=== PATIENT | female | born 1955 | race Caucasian/White ===

== ENCOUNTER 2021-04-11 12:21 | Emergency (ER) | payer SELFPAY ==
[~2021-04-11] VITALS: Ht 157.5 cm; Wt 86.0 kg
[2021-04-11 14:58] LABS: BASOPHILS % 0.8 % (0.0-2.0); EOSINOPHILS % 0.7 % (0.0-5.0); HEMATOCRIT. 39.5 % (36.0-48.0); HEMOGLOBIN. 12.4 g/dL (12.0-16.0); LYMPHOCYTES % 30.6 % (20.0-50.0); MEAN CORPUSCULAR HEMOGLOBIN 25.5 pg (28.0-32.0); MEAN CORPUSCULAR VOLUME 81.2 fL (81.0-99.0); MEAN PLATELET VOLUME 8.7 fl (7.4-10.4); MONOCYTES % 5.7 % (2.0-8.0); NEUTROPHILS % 62.2 % (40.0-76.0); PLATELET 345 x1000/uL (130-400); RED BLOOD CELL COUNT 4.86 mill/uL (4.2-5.4); RED CELL DISTRIBUTION WIDTH 14.6 % (11.6-14.6)
[2021-04-11 15:06] LABS: CLARITY URINE CLEAR (CLEAR); COLOR URINE YELLOW (YELLOW); KETONES URINE NEGATIVE (NEGATIVE); LEUKOCYTE ESTERASE URINE NEGATIVE (NEGATIVE); NITRITE URINE NEGATIVE (NEGATIVE); OCCULT BLOOD URINE NEGATIVE (NEGATIVE); PH URINE 5.5 (4.5-8.0); PROTEIN URINE TRACE (NEGATIVE); SPECIFIC GRAVITY URINE 1.048 (1.005-1.030); UROBILINOGEN URINE 0.2 E.U./dL (0.2-1.0)
[2021-04-11 15:06] LABS: CHLORIDE 105 mEq/L (98-107)
[2021-04-11 18:10] VITALS: BP 229/117
[2021-04-11] MEDS ORDERED: TRAM50TA94 MT (18:10)
[2021-04-11] MEDS ORDERED: MED4 MT ×2 (18:10)
[2021-04-11] MEDS ORDERED: CYCL10TA7 MT ×2 (18:10)
== END 2021-04-11 18:36 | disposition home or self-care (01) ==
LOC: ER 12:21
DX: R20.0 Anesthesia of skin (principal); M54.16 Radiculopathy, lumbar region
CPT/HCPCS: 36415; 70450; 72125; 72148; 80053; 81003; 85025; 99285; A4217

== ENCOUNTER 2021-04-26 11:35 | Inpatient (IN) | payer MEDICAID ==
[~2021-04-26] VITALS: Ht 157.5 cm; Wt 96.2 kg
[~2021-04-26 11:35] MED LIST: CYCL10TA7 MT; MED4 MT; TRAM50TA94 MT
[2021-04-26 12:51] LABS: BASOPHILS % 0.7 % (0.0-2.0); EOSINOPHILS % 1.5 % (0.0-5.0); HEMATOCRIT. 39.7 % (36.0-48.0); HEMOGLOBIN. 12.9 g/dL (12.0-16.0); LYMPHOCYTES % 32.2 % (20.0-50.0); MEAN CORPUSCULAR HEMOGLOBIN 26.2 pg (28.0-32.0); MEAN CORPUSCULAR VOLUME 80.9 fL (81.0-99.0); MEAN PLATELET VOLUME 9.5 fl (7.4-10.4); MONOCYTES % 11.7 % (2.0-8.0); NEUTROPHILS % 53.9 % (40.0-76.0); PLATELET 310 x1000/uL (130-400); RED BLOOD CELL COUNT 4.91 mill/uL (4.2-5.4); RED CELL DISTRIBUTION WIDTH 14.4 % (11.6-14.6)
[2021-04-26 12:56] LABS: CHLORIDE 96 mEq/L (98-107)
[2021-04-26] MEDS ORDERED: ENALAPRIL 2.5MG/2ML VIAL 2ML IV ONE (13:30)
[2021-04-26] MEDS ORDERED: ASPIRIN 325MG EC TABLET PO ONE (13:30)
[2021-04-26] MEDS ORDERED: SODIUM CHLORIDE 0.9% 500 ML IV ONE (13:30)
[2021-04-26] MEDS: ENALAPRIL 1.25MG/ML VIAL 1ML IV SCH (13:47)
[2021-04-26] MEDS ORDERED: ONDANSETRON HCL 4MG/2ML INJ IV PRN (18:45)
[2021-04-26] MEDS ORDERED: DIPHENHYDRAMINE 50MG/ML VIAL IV PRN (18:45)
[2021-04-26] MEDS ORDERED: ACETAMINOPHEN 325MG TABLET PO PRN (18:45)
[2021-04-26] MEDS: AMLODIPINE 10MG TABLET PO SCH (19:07)
[2021-04-26] MEDS ORDERED: ENOXAPARIN 40MG/0.4ML SYR SUBCUT SCH (20:00)
[2021-04-26] MEDS ORDERED: DEXTROSE 50% WATER 50ML SYRINGE IV PRN (20:30)
[2021-04-26] MEDS: BLOOD SUGAR DIAGNOSTIC STRIP TEST SCH (21:00)
[2021-04-26] MEDS: CLONIDINE 0.1MG TABLET PO PRN (22:27)
[2021-04-26] MEDS: INSULIN LISPRO (MEDIUM DOSE) 100 UNITS/ML SUBCUT SCH (22:28)
[2021-04-26 22:30] VITALS: BP 173/75
[2021-04-27] VITALS (7 sets, daily range): BP systolic 106–180; BP diastolic 60–87
[2021-04-27] MEDS ORDERED: GLIM2TAB30 PO (01:04)
[2021-04-27] MEDS ORDERED: CHLO50TA PO (01:04)
[2021-04-27] MEDS ORDERED: METF-414 PO (01:04)
[2021-04-27] MEDS ORDERED: NIFE-33 PO (01:04)
[2021-04-27] MEDS ORDERED: ATOR10TA69 PO (01:04)
[2021-04-27] MEDS ORDERED: LISI40TA13 PO (01:04)
[2021-04-27] MEDS ORDERED: ASPI-1406 PO (01:04)
[2021-04-27] MEDS: BLOOD SUGAR DIAGNOSTIC STRIP TEST SCH ×4 (07:13→21:15)
[2021-04-27 07:35] LABS: BASOPHILS % 0.9 % (0.0-2.0); EOSINOPHILS % 2.6 % (0.0-5.0); HEMATOCRIT. 38.2 % (36.0-48.0); HEMOGLOBIN. 12.2 g/dL (12.0-16.0); LYMPHOCYTES % 41.5 % (20.0-50.0); MEAN CORPUSCULAR HEMOGLOBIN 25.9 pg (28.0-32.0); MEAN PLATELET VOLUME 9.6 fl (7.4-10.4); MONOCYTES % 10.5 % (2.0-8.0); NEUTROPHILS % 44.5 % (40.0-76.0); PLATELET 277 x1000/uL (130-400); RED BLOOD CELL COUNT 4.71 mill/uL (4.2-5.4); RED CELL DISTRIBUTION WIDTH 14.3 % (11.6-14.6)
[2021-04-27 07:40] LABS: CHLORIDE 99 mEq/L (98-107)
[2021-04-27 07:46] LABS: LDL CHOLESTEROL 111 mg/dL (5-100)
[2021-04-27 07:47] LABS: HDL CHOLESTEROL 44 mg/dL (40-59)
[2021-04-27] MEDS: CLONIDINE 0.1MG TABLET PO PRN (08:50)
[2021-04-27] MEDS: AMLODIPINE 10MG TABLET PO SCH (08:51)
[2021-04-27] MEDS: INSULIN LISPRO (MEDIUM DOSE) 100 UNITS/ML SUBCUT SCH ×2 (08:53→12:31)
[2021-04-27] MEDS ORDERED: POTASSIUM CHLORIDE 20MEQ TABLET SR PO NR (10:00)
[2021-04-27] MEDS ORDERED: POTASSIUM CHLORIDE 20MEQ/PACKET PO NR (13:30)
[2021-04-27] MEDS: INSULIN LISPRO 100 UNITS/ML SUBCUT SCH ×2 (17:10→21:20)
[2021-04-27] MEDS ORDERED: ATORVASTATIN CALCIUM 10MG TABLET PO SCH (21:00)
[2021-04-27 21:07] LABS: CLARITY URINE CLEAR (CLEAR); COLOR URINE YELLOW (YELLOW); KETONES URINE TRACE (NEGATIVE); LEUKOCYTE ESTERASE URINE NEGATIVE (NEGATIVE); NITRITE URINE NEGATIVE (NEGATIVE); OCCULT BLOOD URINE NEGATIVE (NEGATIVE); PROTEIN URINE NEGATIVE (NEGATIVE); SPECIFIC GRAVITY URINE 1.036 (1.005-1.030); UROBILINOGEN URINE 0.2 E.U./dL (0.2-1.0)
[2021-04-27 21:34] LABS: *AMPHETAMINES SCREEN URINE NEGATIVE (NEGATIVE); *BARBITURATES SCREEN URINE NEGATIVE (NEGATIVE); *BENZODIAZEPINES SCREEN URINE NEGATIVE (NEGATIVE)
[2021-04-27 21:35] LABS: *COCAINE SCREEN URINE NEGATIVE (NEGATIVE); CANNABINOID URINE SCREEN NEGATIVE (NEGATIVE); METHADONE URINE SCREEN NEGATIVE (NEGATIVE); OPIATES URINE SCREEN NEGATIVE (NEGATIVE); PHENCYCLIDINE URINE SCREEN NEGATIVE (NEGATIVE)
[2021-04-28] VITALS: BP 146/76
[2021-04-28] MEDS: ASPIRIN 81MG TABLET PO SCH ×2 (00:43→08:50)
[2021-04-28 04:00] VITALS: BP 126/65
[2021-04-28 06:27] LABS: CHLORIDE 101 mEq/L (98-107)
[2021-04-28 06:30] LABS: BASOPHILS % 0.9 % (0.0-2.0); EOSINOPHILS % 2.8 % (0.0-5.0); HEMATOCRIT. 37.3 % (36.0-48.0); HEMOGLOBIN. 12.1 g/dL (12.0-16.0); LYMPHOCYTES % 45.7 % (20.0-50.0); MEAN CORPUSCULAR HEMOGLOBIN 26.3 pg (28.0-32.0); MEAN CORPUSCULAR VOLUME 81.2 fL (81.0-99.0); MEAN PLATELET VOLUME 9.6 fl (7.4-10.4); MONOCYTES % 10.1 % (2.0-8.0); NEUTROPHILS % 40.5 % (40.0-76.0); PLATELET 258 x1000/uL (130-400); RED BLOOD CELL COUNT 4.59 mill/uL (4.2-5.4); RED CELL DISTRIBUTION WIDTH 14.1 % (11.6-14.6)
[2021-04-28] MEDS: BLOOD SUGAR DIAGNOSTIC STRIP TEST SCH ×4 (06:30→21:22)
[2021-04-28 06:37] LABS: LDL CHOLESTEROL 104 mg/dL (5-100)
[2021-04-28 06:39] LABS: HDL CHOLESTEROL 44 mg/dL (40-59)
[2021-04-28 08:00] VITALS: BP 165/75
[2021-04-28] MEDS: INSULIN LISPRO 100 UNITS/ML SUBCUT SCH ×4 (08:50→21:21)
[2021-04-28] MEDS: AMLODIPINE 10MG TABLET PO SCH (08:51)
[2021-04-28] MEDS ORDERED: POTASSIUM CHLORIDE 20MEQ/PACKET PO NR (09:30)
[2021-04-28] MEDS: CLOPIDOGREL 75MG TABLET PO SCH (11:42)
[2021-04-28] MEDS: LOSARTAN POTASSIUM 25 MG TABLET PO SCH (11:42)
[2021-04-28] MEDS: POLYETHYLENE GLYCOL 3350 (17GM) 1 DOSE PACK PO SCH (11:42)
[2021-04-28 12:00] VITALS: BP 148/74
[2021-04-28] MEDS ORDERED: INSULIN GLARGINE UD 100 UNITS/ML SYR SUBCUT SCH (12:00)
[2021-04-28] MEDS: METRONIDAZOLE 0.75% VAG GEL 70GM VG SCH ×2 (13:38→21:22)
[2021-04-28] MEDS: ENOXAPARIN 30MG/0.3ML SYR SUBCUT SCH ×2 (15:15→22:59)
[2021-04-28 16:00] VITALS: BP 129/59
[2021-04-28] MEDS: HYDROCODONE/ACETAMINOPHEN 5/325MG TABLET PO PRN ×2 (16:58→23:00)
[2021-04-28 17:06] LABS: FOLIC ACID (FOLATE) SERUM 18.1 ng/mL (>5.38)
[2021-04-28] MEDS ORDERED: IOHEXOL-350 100 ML BOTTLE ONE (17:11)
[2021-04-28 20:00] VITALS: BP 135/67
[2021-04-28] MEDS: ATORVASTATIN CALCIUM 40MG TABLET PO SCH (21:22)
[2021-04-28] MEDS: INSULIN GLARGINE UD 100 UNITS/ML SYR SUBCUT SCH (21:22)
[2021-04-29] VITALS: BP 122/67
[2021-04-29 04:00] VITALS: BP 147/69
[2021-04-29] MEDS: CLONIDINE 0.1MG TABLET PO PRN (04:15)
[2021-04-29] MEDS: HYDROCODONE/ACETAMINOPHEN 5/325MG TABLET PO PRN ×4 (04:57→23:50)
[2021-04-29] MEDS: BLOOD SUGAR DIAGNOSTIC STRIP TEST SCH ×4 (04:58→20:11)
[2021-04-29 06:02] LABS: BASOPHILS % 0.8 % (0.0-2.0); HEMATOCRIT. 37.6 % (36.0-48.0); HEMOGLOBIN. 12.1 g/dL (12.0-16.0); LYMPHOCYTES % 53.2 % (20.0-50.0); MEAN CORPUSCULAR HEMOGLOBIN 26.1 pg (28.0-32.0); MEAN CORPUSCULAR VOLUME 81.1 fL (81.0-99.0); MEAN PLATELET VOLUME 9.5 fl (7.4-10.4); MONOCYTES % 11.1 % (2.0-8.0); NEUTROPHILS % 31.9 % (40.0-76.0); PLATELET 268 x1000/uL (130-400); RED BLOOD CELL COUNT 4.64 mill/uL (4.2-5.4); RED CELL DISTRIBUTION WIDTH 14.2 % (11.6-14.6)
[2021-04-29 06:13] LABS: CHLORIDE 103 mEq/L (98-107)
[2021-04-29] MEDS: INSULIN LISPRO 100 UNITS/ML SUBCUT SCH ×7 (06:35→21:05)
[2021-04-29 08:00] VITALS: BP 112/68
[2021-04-29] MEDS ORDERED: POTASSIUM CHLORIDE 20MEQ TABLET SR PO NR (11:15)
[2021-04-29] MEDS: POLYETHYLENE GLYCOL 3350 (17GM) 1 DOSE PACK PO SCH (11:54)
[2021-04-29] MEDS: CLOPIDOGREL 75MG TABLET PO SCH (11:54)
[2021-04-29] MEDS: ASPIRIN 81MG TABLET PO SCH (11:54)
[2021-04-29] MEDS: AMLODIPINE 10MG TABLET PO SCH (11:54)
[2021-04-29] MEDS: ENOXAPARIN 30MG/0.3ML SYR SUBCUT SCH ×2 (11:55→20:10)
[2021-04-29] MEDS: LOSARTAN POTASSIUM 25 MG TABLET PO SCH (11:55)
[2021-04-29] MEDS: INSULIN GLARGINE UD 100 UNITS/ML SYR SUBCUT SCH ×2 (11:58→21:04)
[2021-04-29 12:10] VITALS: BP 176/77
[2021-04-29] MEDS: PREDNISOLONE ACETATE 1% OPHTH DROPS 5ML BOTHEYE SCH ×3 (13:35→23:50)
[2021-04-29] MEDS: CIPROFLOXACIN 0.3% OPHTH SOLN 2.5ML BOTHEYE SCH ×3 (13:36→20:11)
[2021-04-29] MEDS: DORZOLAMIDE 2% OPHTH 10 ML BOTTLE BOTHEYE SCH ×2 (13:36→21:03)
[2021-04-29 16:10] VITALS: BP 131/97
[2021-04-29 20:00] VITALS: BP 155/81
[2021-04-29] MEDS: METRONIDAZOLE 0.75% VAG GEL 70GM VG SCH (20:10)
[2021-04-29] MEDS: ATORVASTATIN CALCIUM 40MG TABLET PO SCH (20:10)
[2021-04-29] MEDS: LATANOPROST 0.005% OPHTH DROPS 2.5ML BOTHEYE SCH (20:11)
[2021-04-30] VITALS: BP 158/87
[2021-04-30 04:00] VITALS: BP 154/85
[2021-04-30] MEDS: PREDNISOLONE ACETATE 1% OPHTH DROPS 5ML BOTHEYE SCH ×3 (05:01→18:45)
[2021-04-30] MEDS: DORZOLAMIDE 2% OPHTH 10 ML BOTTLE BOTHEYE SCH ×3 (05:01→21:02)
[2021-04-30] MEDS: INSULIN LISPRO 100 UNITS/ML SUBCUT SCH ×7 (06:26→21:00)
[2021-04-30] MEDS: BLOOD SUGAR DIAGNOSTIC STRIP TEST SCH ×4 (07:20→20:59)
[2021-04-30 08:00] VITALS: BP 137/77
[2021-04-30] MEDS: CLOPIDOGREL 75MG TABLET PO SCH (08:48)
[2021-04-30] MEDS: LOSARTAN POTASSIUM 25 MG TABLET PO SCH (08:48)
[2021-04-30] MEDS: ASPIRIN 81MG TABLET PO SCH (08:48)
[2021-04-30] MEDS: AMLODIPINE 10MG TABLET PO SCH (08:48)
[2021-04-30] MEDS: HYDROCODONE/ACETAMINOPHEN 5/325MG TABLET PO PRN ×2 (08:49→18:36)
[2021-04-30] MEDS: ENOXAPARIN 30MG/0.3ML SYR SUBCUT SCH ×2 (08:50→20:58)
[2021-04-30] MEDS: POLYETHYLENE GLYCOL 3350 (17GM) 1 DOSE PACK PO SCH (08:50)
[2021-04-30] MEDS: CIPROFLOXACIN 0.3% OPHTH SOLN 2.5ML BOTHEYE SCH ×4 (08:51→20:58)
[2021-04-30] MEDS ORDERED: LACTULOSE 20G/30ML UDC PO NR (10:15)
[2021-04-30] MEDS ORDERED: NALOXONE HCL 0.4MG/ML VIAL IV PRN (10:15)
[2021-04-30] MEDS: INSULIN GLARGINE UD 100 UNITS/ML SYR SUBCUT SCH ×2 (10:16→21:01)
[2021-04-30 12:04] VITALS: BP 154/83
[2021-04-30 16:33] VITALS: BP 128/71
[2021-04-30 20:39] VITALS: BP 137/58
[2021-04-30] MEDS: LATANOPROST 0.005% OPHTH DROPS 2.5ML BOTHEYE SCH (20:58)
[2021-04-30] MEDS: ATORVASTATIN CALCIUM 40MG TABLET PO SCH (20:59)
[2021-04-30] MEDS: METRONIDAZOLE 0.75% VAG GEL 70GM VG SCH (21:02)
[2021-05-01] MEDS: PREDNISOLONE ACETATE 1% OPHTH DROPS 5ML BOTHEYE SCH ×4 (00:18→17:35)
[2021-05-01 00:31] VITALS: BP 149/77
[2021-05-01 04:00] VITALS: BP 95/54
[2021-05-01] MEDS: DORZOLAMIDE 2% OPHTH 10 ML BOTTLE BOTHEYE SCH ×3 (05:30→21:15)
[2021-05-01 06:17] LABS: BASOPHILS % 0.8 % (0.0-2.0); EOSINOPHILS % 2.6 % (0.0-5.0); HEMATOCRIT. 39.3 % (36.0-48.0); HEMOGLOBIN. 12.6 g/dL (12.0-16.0); LYMPHOCYTES % 34.1 % (20.0-50.0); MEAN CORPUSCULAR VOLUME 80.6 fL (81.0-99.0); MEAN PLATELET VOLUME 9.3 fl (7.4-10.4); NEUTROPHILS % 53.5 % (40.0-76.0); PLATELET 268 x1000/uL (130-400); RED BLOOD CELL COUNT 4.87 mill/uL (4.2-5.4)
[2021-05-01] MEDS: BLOOD SUGAR DIAGNOSTIC STRIP TEST SCH ×4 (06:29→21:12)
[2021-05-01 07:04] LABS: CHLORIDE 103 mEq/L (98-107)
[2021-05-01 08:00] VITALS: BP 115/72
[2021-05-01] MEDS: INSULIN LISPRO 100 UNITS/ML SUBCUT SCH ×7 (08:29→21:14)
[2021-05-01] MEDS: LOSARTAN POTASSIUM 25 MG TABLET PO SCH (08:33)
[2021-05-01] MEDS: ENOXAPARIN 30MG/0.3ML SYR SUBCUT SCH ×2 (08:33→21:12)
[2021-05-01] MEDS: POLYETHYLENE GLYCOL 3350 (17GM) 1 DOSE PACK PO SCH (08:33)
[2021-05-01] MEDS: CLOPIDOGREL 75MG TABLET PO SCH (08:33)
[2021-05-01] MEDS: AMLODIPINE 10MG TABLET PO SCH (08:33)
[2021-05-01] MEDS: ASPIRIN 81MG TABLET PO SCH (08:33)
[2021-05-01] MEDS: CIPROFLOXACIN 0.3% OPHTH SOLN 2.5ML BOTHEYE SCH ×4 (09:41→21:16)
[2021-05-01] MEDS: INSULIN GLARGINE UD 100 UNITS/ML SYR SUBCUT SCH ×2 (09:42→21:14)
[2021-05-01] MEDS: HYDROCODONE/ACETAMINOPHEN 5/325MG TABLET PO PRN (11:53)
[2021-05-01 12:00] VITALS: BP 103/64
[2021-05-01 16:00] VITALS: BP 160/77
[2021-05-01 20:00] VITALS: BP 157/69
[2021-05-01] MEDS: ATORVASTATIN CALCIUM 40MG TABLET PO SCH (21:12)
[2021-05-01] MEDS: METRONIDAZOLE 0.75% VAG GEL 70GM VG SCH (21:15)
[2021-05-01] MEDS: LATANOPROST 0.005% OPHTH DROPS 2.5ML BOTHEYE SCH (21:16)
[2021-05-02] VITALS: BP 161/76
[2021-05-02] MEDS: PREDNISOLONE ACETATE 1% OPHTH DROPS 5ML BOTHEYE SCH ×4 (00:12→17:36)
[2021-05-02 04:00] VITALS: BP 123/69
[2021-05-02] MEDS: DORZOLAMIDE 2% OPHTH 10 ML BOTTLE BOTHEYE SCH ×3 (06:06→21:22)
[2021-05-02] MEDS: BLOOD SUGAR DIAGNOSTIC STRIP TEST SCH ×4 (06:07→21:22)
[2021-05-02] MEDS: INSULIN LISPRO 100 UNITS/ML SUBCUT SCH ×7 (06:12→21:21)
[2021-05-02 06:37] LABS: BASOPHILS % 0.6 % (0.0-2.0); EOSINOPHILS % 3.2 % (0.0-5.0); HEMATOCRIT. 35.4 % (36.0-48.0); HEMOGLOBIN. 11.2 g/dL (12.0-16.0); LYMPHOCYTES % 38.5 % (20.0-50.0); MEAN PLATELET VOLUME 8.9 fl (7.4-10.4); MONOCYTES % 8.2 % (2.0-8.0); NEUTROPHILS % 49.5 % (40.0-76.0); PLATELET 268 x1000/uL (130-400); RED BLOOD CELL COUNT 4.32 mill/uL (4.2-5.4); RED CELL DISTRIBUTION WIDTH 14.4 % (11.6-14.6)
[2021-05-02 06:50] LABS: CHLORIDE 105 mEq/L (98-107)
[2021-05-02 08:00] VITALS: BP 129/85
[2021-05-02] MEDS: ASPIRIN 81MG TABLET PO SCH (09:04)
[2021-05-02] MEDS: CLOPIDOGREL 75MG TABLET PO SCH (09:04)
[2021-05-02] MEDS: LOSARTAN POTASSIUM 25 MG TABLET PO SCH (09:05)
[2021-05-02] MEDS: POLYETHYLENE GLYCOL 3350 (17GM) 1 DOSE PACK PO SCH (09:05)
[2021-05-02] MEDS: ENOXAPARIN 30MG/0.3ML SYR SUBCUT SCH ×2 (09:05→21:20)
[2021-05-02] MEDS: AMLODIPINE 10MG TABLET PO SCH (09:05)
[2021-05-02] MEDS: CIPROFLOXACIN 0.3% OPHTH SOLN 2.5ML BOTHEYE SCH ×4 (10:35→21:22)
[2021-05-02] MEDS: INSULIN GLARGINE UD 100 UNITS/ML SYR SUBCUT SCH ×2 (10:37→21:20)
[2021-05-02 12:00] VITALS: BP 156/81
[2021-05-02 16:00] VITALS: BP 144/75
[2021-05-02 20:00] VITALS: BP 174/78
[2021-05-02] MEDS: METRONIDAZOLE 0.75% VAG GEL 70GM VG SCH (21:19)
[2021-05-02] MEDS: CLONIDINE 0.1MG TABLET PO PRN (21:19)
[2021-05-02] MEDS: HYDROCODONE/ACETAMINOPHEN 5/325MG TABLET PO PRN (21:19)
[2021-05-02] MEDS: ATORVASTATIN CALCIUM 40MG TABLET PO SCH (21:19)
[2021-05-02] MEDS: LATANOPROST 0.005% OPHTH DROPS 2.5ML BOTHEYE SCH (21:22)
[2021-05-03] VITALS: BP 111/59
[2021-05-03] MEDS: PREDNISOLONE ACETATE 1% OPHTH DROPS 5ML BOTHEYE SCH ×5 (00:09→23:30)
[2021-05-03 04:00] VITALS: BP 134/68
[2021-05-03] MEDS: DORZOLAMIDE 2% OPHTH 10 ML BOTTLE BOTHEYE SCH ×3 (06:50→21:00)
[2021-05-03] MEDS: BLOOD SUGAR DIAGNOSTIC STRIP TEST SCH ×4 (06:53→20:48)
[2021-05-03 07:41] LABS: CHLORIDE 106 mEq/L (98-107)
[2021-05-03 07:43] LABS: BASOPHILS % 0.7 % (0.0-2.0); EOSINOPHILS % 2.9 % (0.0-5.0); HEMATOCRIT. 31.7 % (36.0-48.0); HEMOGLOBIN. 10.4 g/dL (12.0-16.0); LYMPHOCYTES % 37.6 % (20.0-50.0); MEAN CORPUSCULAR HEMOGLOBIN 26.4 pg (28.0-32.0); MEAN CORPUSCULAR VOLUME 80.5 fL (81.0-99.0); MEAN PLATELET VOLUME 8.8 fl (7.4-10.4); MONOCYTES % 8.1 % (2.0-8.0); NEUTROPHILS % 50.7 % (40.0-76.0); PLATELET 264 x1000/uL (130-400); RED BLOOD CELL COUNT 3.94 mill/uL (4.2-5.4)
[2021-05-03] MEDS: AMLODIPINE 10MG TABLET PO SCH (08:27)
[2021-05-03] MEDS: ASPIRIN 81MG TABLET PO SCH (08:27)
[2021-05-03] MEDS: POLYETHYLENE GLYCOL 3350 (17GM) 1 DOSE PACK PO SCH (08:28)
[2021-05-03] MEDS: LOSARTAN POTASSIUM 25 MG TABLET PO SCH (08:28)
[2021-05-03] MEDS: CLOPIDOGREL 75MG TABLET PO SCH (08:28)
[2021-05-03] MEDS: ENOXAPARIN 30MG/0.3ML SYR SUBCUT SCH ×2 (08:28→20:54)
[2021-05-03] MEDS: CIPROFLOXACIN 0.3% OPHTH SOLN 2.5ML BOTHEYE SCH ×4 (08:29→20:54)
[2021-05-03] MEDS: INSULIN LISPRO 100 UNITS/ML SUBCUT SCH ×7 (08:35→20:56)
[2021-05-03] MEDS: INSULIN GLARGINE UD 100 UNITS/ML SYR SUBCUT SCH ×2 (11:02→21:16)
[2021-05-03 11:54] VITALS: BP 154/72
[2021-05-03 16:00] VITALS: BP 160/71
[2021-05-03 17:10] VITALS: BP 149/75
[2021-05-03 20:00] VITALS: BP 167/74
[2021-05-03] MEDS: CLONIDINE 0.1MG TABLET PO PRN (20:55)
[2021-05-03] MEDS: ATORVASTATIN CALCIUM 40MG TABLET PO SCH (20:55)
[2021-05-03] MEDS: LATANOPROST 0.005% OPHTH DROPS 2.5ML BOTHEYE SCH (20:55)
[2021-05-03] MEDS: METRONIDAZOLE 0.75% VAG GEL 70GM VG SCH (20:57)
[2021-05-04] VITALS (7 sets, daily range): BP systolic 101–169; BP diastolic 52–83
[2021-05-04] MEDS: PREDNISOLONE ACETATE 1% OPHTH DROPS 5ML BOTHEYE SCH ×4 (06:13→23:28)
[2021-05-04] MEDS: DORZOLAMIDE 2% OPHTH 10 ML BOTTLE BOTHEYE SCH ×3 (06:13→21:54)
[2021-05-04] MEDS: BLOOD SUGAR DIAGNOSTIC STRIP TEST SCH ×4 (07:31→21:48)
[2021-05-04] MEDS: INSULIN LISPRO 100 UNITS/ML SUBCUT SCH ×7 (07:31→21:50)
[2021-05-04] MEDS: ASPIRIN 81MG TABLET PO SCH (08:47)
[2021-05-04] MEDS: ENOXAPARIN 30MG/0.3ML SYR SUBCUT SCH ×2 (08:47→21:48)
[2021-05-04] MEDS: POLYETHYLENE GLYCOL 3350 (17GM) 1 DOSE PACK PO SCH (08:47)
[2021-05-04] MEDS: CLOPIDOGREL 75MG TABLET PO SCH (08:47)
[2021-05-04] MEDS: LOSARTAN POTASSIUM 25 MG TABLET PO SCH ×2 (08:47→17:28)
[2021-05-04] MEDS: AMLODIPINE 10MG TABLET PO SCH (08:47)
[2021-05-04] MEDS: CIPROFLOXACIN 0.3% OPHTH SOLN 2.5ML BOTHEYE SCH ×4 (08:48→21:51)
[2021-05-04] MEDS: INSULIN GLARGINE UD 100 UNITS/ML SYR SUBCUT SCH ×2 (10:16→21:55)
[2021-05-04] MEDS: ATORVASTATIN CALCIUM 40MG TABLET PO SCH (21:51)
[2021-05-04] MEDS: LATANOPROST 0.005% OPHTH DROPS 2.5ML BOTHEYE SCH (21:51)
[2021-05-04] MEDS: METRONIDAZOLE 0.75% VAG GEL 70GM VG SCH (21:53)
[2021-05-05] VITALS: BP 168/70
[2021-05-05 04:00] VITALS: BP 149/63
[2021-05-05] MEDS: DORZOLAMIDE 2% OPHTH 10 ML BOTTLE BOTHEYE SCH ×2 (05:57→14:55)
[2021-05-05] MEDS: PREDNISOLONE ACETATE 1% OPHTH DROPS 5ML BOTHEYE SCH ×3 (05:57→18:00)
[2021-05-05] MEDS: BLOOD SUGAR DIAGNOSTIC STRIP TEST SCH ×3 (07:20→17:20)
[2021-05-05] MEDS: INSULIN LISPRO 100 UNITS/ML SUBCUT SCH ×6 (07:49→17:50)
[2021-05-05 08:00] VITALS: BP 157/67
[2021-05-05] MEDS: AMLODIPINE 10MG TABLET PO SCH (09:21)
[2021-05-05] MEDS: POLYETHYLENE GLYCOL 3350 (17GM) 1 DOSE PACK PO SCH (09:21)
[2021-05-05] MEDS: ASPIRIN 81MG TABLET PO SCH (09:21)
[2021-05-05] MEDS: LOSARTAN POTASSIUM 25 MG TABLET PO SCH ×2 (09:21→17:00)
[2021-05-05] MEDS: ENOXAPARIN 30MG/0.3ML SYR SUBCUT SCH (09:21)
[2021-05-05] MEDS: CIPROFLOXACIN 0.3% OPHTH SOLN 2.5ML BOTHEYE SCH ×3 (09:21→17:00)
[2021-05-05] MEDS: INSULIN GLARGINE UD 100 UNITS/ML SYR SUBCUT SCH (09:22)
[2021-05-05] MEDS: CLOPIDOGREL 75MG TABLET PO SCH (09:30)
[2021-05-05] MEDS ORDERED: AMLO10TA80 PO (13:00)
[2021-05-05] MEDS ORDERED: XALAO BOTHEYE (13:00)
[2021-05-05] MEDS ORDERED: TRU10 BOTHEYE (13:00)
[2021-05-05] MEDS ORDERED: LANTUSUD SUBCUT (13:00)
[2021-05-05] MEDS ORDERED: ASPI-1406 PO (13:00)
[2021-05-05] MEDS ORDERED: CLOP75TA15 PO (13:00)
[2021-05-05] MEDS ORDERED: LOSA50TA41 MT (13:00)
[2021-05-05 13:21] VITALS: BP 157/67
[2021-05-10 14:09] LABS: 25-HYDROXY VITAMIN D3 28 ng/mL (.)
== END 2021-05-05 20:00 | disposition home health service (06) | DRG 45 ==
LOC: ER 11:35 → EDBEDREQ 16:05 → EDBEDREQTM 16:05 → MICUSO 19:58 → 6WST 20:34
PROVIDERS: ADMIT Internal Medicine; ATTEND Internal Medicine
DX: I63.9 Cerebral infarction, unspecified (principal); E11.36 Type 2 diabetes mellitus with diabetic cataract; G81.94 Hemiplegia, unspecified affecting left nondominant side; E11.65 Type 2 diabetes mellitus with hyperglycemia; E66.01 Morbid (severe) obesity due to excess calories; E78.5 Hyperlipidemia, unspecified; E78.1 Pure hyperglyceridemia; M54.50 Low back pain, unspecified; E87.6 Hypokalemia; R77.8 Other specified abnormalities of plasma proteins; M48.061 Spinal stenosis, lumbar region without neurogenic claudication; R47.1 Dysarthria and anarthria; R47.01 Aphasia; I65.21 Occlusion and stenosis of right carotid artery; Z79.899 Other long term (current) drug therapy; Z68.33 Body mass index [BMI] 33.0-33.9, adult; Z82.49 Family history of ischemic heart disease and other diseases of the circulatory system; Z79.4 Long term (current) use of insulin; Z79.82 Long term (current) use of aspirin; E87.1 Hypo-osmolality and hyponatremia
CPT/HCPCS: 36415; 70486; 70496; 70498; 70551; 71045; 72141; 72146; 72148; 80048; 80053; 80061; 80305; 81003; 82306; 82607; 82746; 82962; 83036; 83735; 83880; 84443; 84484; 85025; 87426; 92610; 93005; 93306; 93970; 97110; 97112; 97116; 97162; 97166; 97530; 97535; 99285; J1650; J1815; J2405; J3490; J7040; Q9967

== ENCOUNTER 2021-05-15 10:22 | Emergency (ER) | payer MEDICAID ==
[~2021-05-15] VITALS: Ht 157.5 cm; Wt 83.0 kg
[~2021-05-15 10:22] MED LIST changes: +AMLO10TA80 PO; +ASPI-1406 PO; +CLOP75TA15 PO; -CYCL10TA7 MT; +LANTUSUD SUBCUT; +LOSA50TA41 MT; -MED4 MT; -TRAM50TA94 MT; +TRU10 BOTHEYE; +XALAO BOTHEYE
[2021-05-15] MEDS ORDERED: ASPI-1497 MT (10:57)
[2021-05-15 11:20] VITALS: BP 147/73
== END 2021-05-15 11:25 | disposition home or self-care (01) ==
LOC: ER 10:22
DX: Z76.0 Encounter for issue of repeat prescription (principal); E11.9 Type 2 diabetes mellitus without complications; I10 Essential (primary) hypertension; Z86.73 Personal history of transient ischemic attack (TIA), and cerebral infarction without residual deficits; Z79.4 Long term (current) use of insulin; Z79.82 Long term (current) use of aspirin
CPT/HCPCS: 99282; Z7610